=== PATIENT | female | born 1975 | race Caucasian/White ===

== ENCOUNTER 2017-01-14 17:46 | Emergency (ER) | payer SELFPAY ==
[~2017-01-14] VITALS: Ht 160 cm; Wt 56.2 kg
[2017-01-14 18:08] VITALS: BP 116/84
== END 2017-01-14 19:10 | disposition left against medical advice (07) ==
LOC: ED 17:46
DX: Z53.21 Procedure and treatment not carried out due to patient leaving prior to being seen by health care provider (principal)